=== PATIENT | male | born 1995 | race Hispanic/Latino ===

== ENCOUNTER 2020-09-23 22:33 | Emergency (ER) | payer SELFPAY ==
[2020-09-23 23:00] LABS: APPEARANCE,URINE Clear (CLEAR); BILIRUBIN,URINE Negative (NEGATIVE); COLOR,URINE Yellow (YELLOW); GLUCOSE, URINE (UA) Negative (NEGATIVE); KETONES,URINE Negative (NEGATIVE); LEUKOCYTE ESTERASE ,URINE Negative (NEGATIVE); NITRATE,URINE Negative (NEGATIVE); OCCULT BLOOD,URINE Trace (NEGATIVE); PROTEIN,URINE Negative (NEGATIVE)
[2020-09-23 23:17] LABS: BACTERIA,URINE Few /HPF (None Seen); WBC,URINE 0-1 /HPF (0-1)
[2020-09-23 23:38] LABS: BASOPHILS % (AUTO) 0.5 % (0.0-5.0); EOSINOPHILS % (AUTO) 0.8 % (0.0-8.0); HEMATOCRIT 42.8 % (42-54); LYMPHOCYTES % (AUTO) 24.5 % (21.0-51.0); MEAN CORPUSCULAR HEMOGLOBIN 28.9 pg (27.0-33.0); MEAN CORPUSCULAR HGB CONC 32.7 g/dL (32.0-36.0); MEAN CORPUSCULAR VOLUME 88.2 fL (79-99); MONOCYTES % (AUTO) 8.4 % (3.0-13.0); NEUTROPHILS % (AUTO) 64.7 % (40.0-77.0); PLATELET COUNT (AUTO) 297 K/uL (130-400); RED BLOOD CELL COUNT(AUTO) 4.85 MIL/uL (4.50-6.20); RED CELL DISTRIBUTION WIDTH 12.9 % (11.0-15.5); WHITE BLOOD COUNT (AUTO) 10.3 K/uL (4.8-10.8)
[2020-09-23] MEDS ORDERED: KETOROLAC 30MG VIAL (30MG/ML) ONE (23:52)
[2020-09-23 23:57] LABS: CREATININE 0.8 mg/dL (0.5-1.5); POTASSIUM 3.6 mmol/L (3.5-5.1)
[2020-09-24 00:03] LABS: ALBUMIN 3.6 g/dL (3.5-5.0); BILIRUBIN,TOTAL 0.3 mg/dL (0.2-1.0); TOTAL PROTEIN, SERUM 7.4 g/dL (6.0-8.3)
== END 2020-09-24 00:35 | disposition home or self-care (01) ==
LOC: EDH 22:33
DX: R10.32 Left lower quadrant pain (principal); M54.5 Low back pain; Z88.0 Allergy status to penicillin
CPT/HCPCS: 36415; 80053; 81001; 85025; 87088; 96372; 99283; J1885

== ENCOUNTER 2021-02-24 04:50 | Emergency (ER) | payer OTHER ==
[~2021-02-24] VITALS: Ht 172.7 cm; Wt 138.3 kg
[2021-02-24] MEDS ORDERED: CORTSOL AD (06:25)
[2021-02-24] MEDS ORDERED: AZIT250T9 PO (06:25)
[2021-02-24] MEDS ORDERED: AZITHROMYCIN 250 MG TABLET PO ONE ×2 (06:26→06:30)
[2021-02-24] MEDS ORDERED: NEOMYCIN/POLYMYXIN/HC OTIC SUSP 10ML BOTTLE ONE (06:26)
[2021-02-24] MEDS ORDERED: IBUPROFEN 600 MG TABLET ONE (06:27)
[2021-02-24 06:30] VITALS: BP 126/63
[2021-02-24] MEDS ORDERED: IBUPROFEN 600 MG TABLET PO ONE (06:30)
[2021-02-24] MEDS ORDERED: NEOMYCIN/POLYMYXIN/HC OTIC SUSP 10ML BOTTLE AD ONE (06:30)
== END 2021-02-24 06:50 | disposition home or self-care (01) ==
LOC: EDH 04:50
DX: H60.91 Unspecified otitis externa, right ear (principal); Z88.0 Allergy status to penicillin; Z79.1 Long term (current) use of non-steroidal anti-inflammatories (NSAID)